=== PATIENT | female | born 1930 | race Caucasian/White ===

== ENCOUNTER → 2017-04-14 | Outpatient (CLI) | payer MEDICARE | LOC: CT 14:33 | DX: R07.9 Chest pain, unspecified (principal); K44.9 Diaphragmatic hernia without obstruction or gangrene; Z85.3 Personal history of malignant neoplasm of breast | CPT/HCPCS: 71250 ==

== ENCOUNTER → 2017-05-01 | Outpatient (CLI) | payer MEDICARE | LOC: RAD 13:07 | DX: R06.00 Dyspnea, unspecified (principal); R91.8 Other nonspecific abnormal finding of lung field; Z95.0 Presence of cardiac pacemaker | CPT/HCPCS: 71020 ==

== ENCOUNTER → 2021-09-16 | Outpatient (CLI) | payer MEDICARE ==
[~2021-09-16] MED LIST: ACID REDUCER150 MG PO; ANASTROZOLE1 MG PO; ASPIRIN CHEWABL81 MG PO; DITROPAN XL 5 MG5 MG PO; FOSAMAX70 MG PO; LEVAQUIN500 MG PO; LOPRESSOR 25 MG25 MG PO; OMNICEF 300 MG300 MG PO; PLAVIX 75 MG TA75 MG PO; PRAVACHOL80 MG PO; PROTONIX40 MG PO; SYNTHROID25 MCG PO; TYLENOL W/CODEIN1 E1 PO; ZOFRAN ODT 4 MG4 MG PO
== END ==
LOC: CT 10:30
DX: R60.9 Edema, unspecified (principal); I70.213 Atherosclerosis of native arteries of extremities with intermittent claudication, bilateral legs; I99.8 Other disorder of circulatory system
CPT/HCPCS: 36415; 75635; 82565; 93970; Q9967

== ENCOUNTER 2022-02-16 09:45 | Inpatient (IN) | payer MEDICARE ==
[~2022-02-16] VITALS: Ht 170.2 cm; Wt 95.3 kg
[~2022-02-16 09:45] MED LIST changes: +DRISDOL1250 MCG PO
[2022-02-16 10:46] LABS: RED BLOOD COUNT 4.71 M/UL (4.00-5.10); WHITE BLOOD COUNT 14.1 K/UL (4.5-11.0)
[2022-02-16 11:40] LABS: BUN/CREATININE RATIO 16 (0-10)
[2022-02-16] MEDS ORDERED: CYANOCOBAL1000 MCG/1 IM (17:44)
[2022-02-16] MEDS ORDERED: ARTHRITIS PAIN150 GM TP (17:45)
[2022-02-16] MEDS ORDERED: PROAIR HFA8.5 GM INH (17:46)
[2022-02-16] MEDS ORDERED: FUROSEMIDE20 MG PO (17:47)
[2022-02-17 06:37] LABS: HEMOGLOBIN 12.5 gm/dl (12.3-15.3); RED BLOOD COUNT 4.3 M/UL (4.00-5.10); WHITE BLOOD COUNT 12.7 K/UL (4.5-11.0)
[2022-02-18 06:09] LABS: HEMOGLOBIN 12.4 gm/dl (12.3-15.3); RED BLOOD COUNT 4.21 M/UL (4.00-5.10)
[2022-02-18 06:19] LABS: WHITE BLOOD COUNT 15.9 K/UL (4.5-11.0)
[2022-02-18 06:51] LABS: BUN/CREATININE RATIO 22 (0-10)
[2022-02-19 06:59] LABS: HEMOGLOBIN 12.5 gm/dl (12.3-15.3); RED BLOOD COUNT 4.27 M/UL (4.00-5.10)
[2022-02-19 07:00] LABS: WHITE BLOOD COUNT 28.2 K/UL (4.5-11.0)
[2022-02-19 07:17] LABS: BUN/CREATININE RATIO 28 (0-10)
[2022-02-20 04:19] LABS: HEMOGLOBIN 11.5 gm/dl (12.3-15.3); RED BLOOD COUNT 3.9 M/UL (4.00-5.10)
[2022-02-20 04:27] LABS: WHITE BLOOD COUNT 18.8 K/UL (4.5-11.0)
[2022-02-20 04:42] LABS: BUN/CREATININE RATIO 33 (0-10)
[2022-02-21 04:24] LABS: HEMOGLOBIN 11.2 gm/dl (12.3-15.3); RED BLOOD COUNT 3.85 M/UL (4.00-5.10)
[2022-02-21 04:29] LABS: WHITE BLOOD COUNT 12.9 K/UL (4.5-11.0)
[2022-02-21 04:42] LABS: BUN/CREATININE RATIO 34 (0-10)
[2022-02-21] MEDS ORDERED: PREDNISONE20 MG PO (13:34)
[2022-02-21] MEDS ORDERED: SYMBICORT 16010.2 GM INH (13:34)
[2022-02-21] MEDS ORDERED: LEVOFLOXACIN750 MG PO (13:34)
== END 2022-02-21 14:20 | disposition home or self-care (01) | DRG 193 ==
LOC: ER1 09:45 → CDU 12:09 → MED SURG 4 16:59
PROVIDERS: Nurse Practitioner; Physician Assistant; Physician Assistant Medical; ADMIT Internal Medicine
DX: J18.9 Pneumonia, unspecified organism (principal); J96.21 Acute and chronic respiratory failure with hypoxia; J45.901 Unspecified asthma with (acute) exacerbation; I10 Essential (primary) hypertension; E03.9 Hypothyroidism, unspecified; D72.829 Elevated white blood cell count, unspecified; T38.0X5A Adverse effect of glucocorticoids and synthetic analogues, initial encounter; E78.5 Hyperlipidemia, unspecified; Z95.0 Presence of cardiac pacemaker; Z90.49 Acquired absence of other specified parts of digestive tract; Z90.710 Acquired absence of both cervix and uterus; Z98.890 Other specified postprocedural states; Z88.0 Allergy status to penicillin; Z83.3 Family history of diabetes mellitus; Z82.49 Family history of ischemic heart disease and other diseases of the circulatory system; Z88.8 Allergy status to other drugs, medicaments and biological substances; Z79.82 Long term (current) use of aspirin; Z79.02 Long term (current) use of antithrombotics/antiplatelets
CPT/HCPCS: 0240U; 36415; 36600; 71045; 80048; 80053; 81001; 82550; 82553; 82785; 82803; 83605; 83735; 83880; 84439; 84443; 84484; 85025; 85027; 85610; 85652; 85730; 86140; 87040; 87070; 87086; 87205; 93005; 94640; 94664; 94760; 96374; 96375; 97110-GP-CQ; 97116-GP-CQ; 97161; 99285; J0456; J0696; J1650; J1956; J2920; J2930; J7030

== ENCOUNTER → 2022-03-16 | Outpatient (CLI) | payer MEDICARE ==
[~2022-03-16] MED LIST changes: +ARTHRITIS PAIN150 GM TP; +CYANOCOBAL1000 MCG/1 IM; +FUROSEMIDE20 MG PO; +LEVOFLOXACIN750 MG PO; +PREDNISONE20 MG PO; +PROAIR HFA8.5 GM INH; +SYMBICORT 16010.2 GM INH
== END ==
LOC: RT 16:51
DX: R09.02 Hypoxemia (principal)
CPT/HCPCS: 36600; 82803

== ENCOUNTER → 2022-03-16 | Outpatient (CLI) | payer MEDICARE | LOC: HEART 5 14:52 | DX: J45.909 Unspecified asthma, uncomplicated (principal) | CPT/HCPCS: 94060; 94729 ==